=== PATIENT | male | born 1955 | race Hispanic/Latino ===

== ENCOUNTER 2016-05-22 10:24 | Emergency (ER) | payer MEDICAID ==
[2016-05-22 11:05] VITALS: BP 130/78; PULSE 102; TEMP 97; O2SAT 97; BMI 27.4
[2016-05-22] MEDS ORDERED: Piperacillin/Tazobact 3.375 GM in Sodium Chloride 0.9% 100 ML IVPB ONE (11:30)
[2016-05-22] MEDS ORDERED: TDAP Vaccine 0.5 mL Syr IM ONE (11:30)
--- NOTE | 2016-05-22 11:33 | ED PDOC ---
HPI: Skin/Bite Injury Time Seen by Provider: 05/22/16 11:22 Chief Complaint (Provider): Dog bite - Right hand History Per: Patient History/Exam Limitations: no limitations Onset/Duration Of Symptoms: Hrs (>12 ) Current Symptoms Are (Timing): Still Present Quality Of Symptoms: Painful Severity: Mild Pain Scale Rating Of: 2 Additional Complaint(s): Pt states he went to pet his friend dog, who has not seen him in a long time and the dog bite him. Pt states this was approx 20 hours ago. Dog UTD with vaccinations. Pt states he cleaned area with peroxide last night. Unknown tetanus. Past Medical History Reviewed: Historical Data, Nursing Documentation, Vital Signs Vital Signs: Last Vital Signs Temp 97 F L 05/22/16 11:04 Pulse 102 H 05/22/16 11:04 Resp BP 130/78 05/22/16 11:04 Pulse Ox 97 05/22/16 11:34 - Medical History PMH: No Chronic Diseases - Surgical History Surgical History: No Surg Hx - Family History Family History: States: Unknown Family Hx - Living Arrangements Living Arrangements: With Family - Social History Current smoker - smoking cessation education provided: No Alcohol: None Drugs: Denies - Home Medications Home Medications: Ambulatory Orders Medication Instructions Recorded Amoxicillin/Clavulanate [Augmentin 1 tab PO BID #20 tab 05/22/16 875 MG-125 MG] - Allergies Allergies/Adverse Reactions: Allergies Allergy/AdvReac Type Severity Reaction Status Date / Time No Known Allergies Allergy Verified 05/22/16 11:30 Review of Systems ROS Statement: Except As Marked, All Systems Reviewed And Found Negative Physical Exam - Reviewed Nursing Documentation Reviewed: Yes Vital Signs Reviewed: Yes - Physical Exam Appears: Positive for: Well, Non-toxic, No Acute Distress Head Exam: Positive for: ATRAUMATIC, NORMAL INSPECTION, NORMOCEPHALIC Skin: Positive for: Warm. Negative for: Normal Color ((+) 3 cm curvilnear laceration right posterior hand, base of thumb; localized blanching erythema ) Eye Exam: Positive for: Normal appearance ENT: Positive for: Normal ENT Inspection Neck: Positive for: Normal, Painless ROM Respiratory: Negative for: Accessory Muscle Use, Respiratory Distress Pulses-Radial (L): 2+ Pulses-Radial (R): 2+ Back: Positive for: Normal Inspection Extremity: Positive for: Normal ROM (in right hand and thumb, sensation intact ) Neurologic/Psych: Positive for: Alert, Oriented - ECG O2 Sat by Pulse Oximetry: 97 Pulse Ox Interpretation: Normal Medical Decision Making Medical Decision Making: Wound irrigated. Steri-stripes applied with darryl wrap. Discussed the importace of f/u in 48 hours for wound check in ER or clinc. Disposition - Clinical Impression Clinical Impression: Tetanus toxoid vaccination administered at current visit, Dog bite - Patient ED Disposition Is Patient to be Admitted: No Counseled Patient/Family Regarding: Diagnosis, Need For Followup, Rx Given - Disposition Referrals: [facility] [Outside] Disposition: Routine/Home Disposition Time: 14:04 Condition: GOOD Additional Instructions: Wound check in 2 days. Prescriptions: Amoxicillin/Clavulanate [Augmentin 875 MG-125 MG] 1 tab PO BID #20 tab Instructions: Animal Bite (ED)
[2016-05-22] MEDS ORDERED: Piperacillin/Tazobact 3.375 gm Inj IVPB ONE (11:53)
[2016-05-22] MEDS ORDERED: Tetanus/Diphtheria Toxoids 0.5 ml Syringe IM ONE (11:53)
== END 2016-05-22 14:13 | disposition home or self-care (01) ==
LOC: H.ER 10:24
DX: S61.411A Laceration without foreign body of right hand, initial encounter (principal); W54.0XXA Bitten by dog, initial encounter
CPT/HCPCS: 90471; 90715; 99283; J2543

== ENCOUNTER 2017-01-02 08:42 | Emergency (ER) | payer MEDICAID, OTHER ==
--- NOTE | 2017-01-02 08:52 | ED PDOC ---
HPI: CCC, URI, Sore Throat Time Seen by Provider: 01/02/17 08:43 History Per: Patient Onset/Duration Of Symptoms: Other (2 weeks) Current Symptoms Are (Timing): Still Present Location Of Pain: Throat Associated Symptoms: Cough. denies: Fever, Sore Throat, Sputum Severity: Mild Additional Complaint(s): Non productive cough x 2 weeks. No fever, SOB or chest pain. Also c/o hoarse throat Past Medical History Vital Signs: Last Vital Signs Temp 97.9 F 01/02/17 08:45 Pulse 80 01/02/17 08:45 Resp 20 01/02/17 08:45 BP 136/77 01/02/17 08:45 Pulse Ox 97 01/02/17 08:54 - Medical History PMH: No Chronic Diseases - Family History Family History: States: Unknown Family Hx - Social History Current smoker - smoking cessation education provided: Yes - Home Medications Home Medications: Ambulatory Orders Medication Instructions Recorded Amoxicillin/Clavulanate [Augmentin 1 tab PO BID #20 tab 05/22/16 875 MG-125 MG] Albuterol HFA [Ventolin HFA 90 2 puff IH Q4H #1 puff 01/02/17 mcg/actuation (8 g)] Azithromycin [Zithromax] 250 mg PO DAILY #6 tab 01/02/17 - Allergies Allergies/Adverse Reactions: Allergies Allergy/AdvReac Type Severity Reaction Status Date / Time No Known Allergies Allergy Verified 05/22/16 11:30 Review of Systems Constitutional: Negative for: Fever ENT: Positive for: Throat Pain Cardiovascular: Negative for: Chest Pain Respiratory: Positive for: Cough. Negative for: Shortness of Breath Physical Exam - Physical Exam Appears: Positive for: Non-toxic, No Acute Distress Skin: Positive for: Normal Color, Warm, DRY ENT: Positive for: Normal ENT Inspection. Negative for: Pharyngeal Erythema, Tonsillar Exudate, Tonsillar Swelling Neck: Positive for: Normal, Painless ROM Cardiovascular/Chest: Positive for: Regular Rate, Rhythm Respiratory: Positive for: CNT, Normal Breath Sounds - ECG O2 Sat by Pulse Oximetry: 97 Disposition - Clinical Impression Clinical Impression: Bronchitis - Patient ED Disposition Is Patient to be Admitted: No Counseled Patient/Family Regarding: Studies Performed, Diagnosis, Need For Followup, Rx Given - Disposition Referrals: [facility] [Outside] Disposition: Routine/Home Disposition Time: 08:55 Condition: FAIR Prescriptions: Albuterol HFA [Ventolin HFA 90 mcg/actuation (8 g)] 2 puff IH Q4H #1 puff Azithromycin [Zithromax] 250 mg PO DAILY #6 tab Instructions: Acute Bronchitis (ED)
[2017-01-02 09:06] VITALS: BP 136/77; PULSE 80; RESP 20; TEMP 97.9; O2SAT 97; BMI 27.4
== END 2017-01-02 09:18 | disposition home or self-care (01) ==
LOC: H.ER 08:42
DX: J06.9 Acute upper respiratory infection, unspecified (principal)